=== PATIENT | male | born 1950 | race Caucasian/White ===

== ENCOUNTER 2022-01-19 13:09 | Emergency (ER) | payer OTHER ==
[~2022-01-19] VITALS: Ht 177.8 cm; Wt 131.5 kg
[2022-01-19 13:10] VITALS: BP_SYST 146
--- NOTE | 2022-01-19 13:39 | NUR ---
ERMD AT BEDSIDE
--- NOTE | 2022-01-19 13:39 | NUR ---
PT REFUSING CT SCAN, STATED SHE WANTS TO SIGN AMA PAPERWORK, STATED HE NEEDS FLUIDS
[2022-01-19] MEDS ORDERED: NS 500 ML IV ONE (13:45)
[2022-01-19 14:09] LABS: BASOPHILS % (AUTO) 0.6 % (0.0-2.0); EOSINOPHILS # (AUTO) 0.1 K/uL (0.0-0.4); EOSINOPHILS % (AUTO) 2.3 % (0.0-4.0); HEMATOCRIT 25.7 % (36-54); HEMOGLOBIN 8.7 g/dL (14.0-18.0); LYMPHOCYTES # (AUTO) 0.2 K/uL (1.0-5.5); LYMPHOCYTES % (AUTO) 5.7 % (20.5-51.5); MEAN CORPUSCULAR HEMOGLOBIN 34 pg (27-31); MEAN CORPUSCULAR HGB CONC 34 % (32-36); MEAN CORPUSCULAR VOLUME 101 fL (79.0-98.0); MONOCYTES # (AUTO) 0.4 K/uL (0.0-1.0); MONOCYTES % (AUTO) 10.9 % (1.7-9.3); NEUTROPHILS # (AUTO) 3.3 K/uL (1.8-7.7); NEUTROPHILS % (AUTO) 80.5 % (40.0-70.0); RED BLOOD CELL COUNT(AUTO) 2.56 MIL/uL (4.2-6.2); RED CELL DISTRIBUTION WIDTH 15.7 % (9.0-15.0); WHITE BLOOD COUNT (AUTO) 4.1 K/uL (4.8-10.8)
[2022-01-19 14:13] LABS: ANION GAP 5 (5-15); CALCIUM 7.3 mg/dL (8.4-11.0); CHLORIDE 105 mmol/L (98-107); CREATININE 4.45 mg/dL (0.55-1.30); GLUCOSE 164 mg/dL (70-99); POTASSIUM 3.9 mmol/L (3.5-5.1); SODIUM SERUM 141 mmol/L (136-145); UREA NITROGEN, BLOOD 33 mg/dL (8-21)
[2022-01-19 14:19] LABS: ACETAMINOPHEN 1 ug/mL (1-30); ALANINE AMINOTRANSFERASE 8 U/L (12-78); ALBUMIN 2.2 g/dL (3.4-4.8); ALCOHOL, BLOOD 4 mg/dL (<10); ASPARTATE AMINOTRANSFERASE 17 U/L (10-37); C-REACTIVE PROTEIN QUANT 1.8 mg/dL (0-0.5); TOTAL BILIRUBIN 0.6 mg/dL (0.0-1.0)
[2022-01-19 14:20] LABS: GFR AFRICAN AMERICAN 17 mL/min (>90)
[2022-01-19 14:25] LABS: PLATELET COUNT (AUTO) 61 K/uL (130-430)
[2022-01-19 14:31] LABS: ACETONE, SERUM NEGATIVE (NEGATIVE)
--- NOTE | 2022-01-19 15:53 | NUR ---
Patient given written and verbal discharge instructions and verbalizes understanding. ER MD discussed with patient the results and treatment provided. Patient in stable condition. ID arm band removed. IV catheter removed intact and dressing applied, no active bleeding. Rx of none given. Patient educated on pain management and to follow up with PMD. Pain Scale 0/10. Opportunity for questions provided and answered. Medication side effect fact sheet provided.
== END 2022-01-19 15:53 | disposition home or self-care (01) ==
LOC: SED 13:09
DX: D64.9 Anemia, unspecified (principal); N19 Unspecified kidney failure; Z79.899 Other long term (current) drug therapy
CPT/HCPCS: 36415; 80053; 82009; 82140; 82550; 83605; 85025; 85610; 85730; 86140; 93005; 96360; 99284; G0480; G0481; G0482; J7040